=== PATIENT | male | born 1960 | race Two or more races ===

== ENCOUNTER 2021-08-05 00:01 | Inpatient (IN) | payer OTHER ==
[2021-08-05] VITALS (32 sets, daily range): BP systolic 122–166; BP diastolic 51–110
[~2021-08-05] VITALS: Ht 167.6 cm; Wt 87.1 kg
[2021-08-05] MEDS ORDERED: ONDANSETRON HCL/PF 4 MG/2 ML VIAL ONE (00:11)
[2021-08-05] MEDS ORDERED: PANTOPRAZOLE 40 MG VIAL ONE ×2 (00:11→08:08)
--- NOTE | 2021-08-05 00:15 | NUR ---
BIBRA FROM HOME C/O FOUND BY NEIGHBORS OUTSIDE APT SITTING ON CHAIR NOTED BLOOD, PT SAID RECTALLY BLEEDING FOR 16 HRS. PT A/O X 3, R R EVEN UNLABORED. NO SOB NOTED. PT TAKEN TO ER BED 08. PT CONNECTED TO CARDIAC AND POX MONITOR.
[2021-08-05] MEDS ORDERED: ONDANSETRON HCL/PF 4 MG/2 ML VIAL IVP ONE (00:30)
[2021-08-05] MEDS ORDERED: PANTOPRAZOLE 40 MG VIAL IV ONE (00:30)
[2021-08-05] MEDS ORDERED: IV NS 0.9% 1,000 ML BAG IV ONE ×2 (00:30)
--- NOTE | 2021-08-05 00:35 | NUR ---
COVID ANTIGEN SWAB COLLECTED AND SENT TO LAB
--- NOTE | 2021-08-05 00:35 | NUR ---
CYLINDER DEVALVER LAC #20G S/L PATENT AND INTACT. RETAIL GENERAL MANAGER AT PT'S BEDSIDE. URINE COLLECTED AND SENT TO LAB
--- NOTE | 2021-08-05 00:39 | NUR ---
SENIOR ARCHITECT AT PT'S BEDSIDE
--- NOTE | 2021-08-05 00:40 | NUR ---
MRSA SWAB COLLECTED AND SENT TO LAB. PATIENT'S BELONGINGS LIST DONE.
[2021-08-05 00:51] LABS: BASOPHILS # (AUTO) 0.1 K/uL (0.0-0.2); BASOPHILS % (AUTO) 0.4 % (0.0-2.0); EOSINOPHILS % (AUTO) 0.7 % (0.0-6.0); LYMPHOCYTES # (AUTO) 2.1 K/uL (0.8-4.8); LYMPHOCYTES % (AUTO) 14.5 % (20.0-44.0); MEAN CORPUSCULAR HGB CONC 29 g/dl (31.0-36.0); MEAN CORPUSCULAR VOLUME 97 fL (80-96); MONOCYTES # (AUTO) 1.1 K/uL (0.1-1.30); MONOCYTES % (AUTO) 7.3 % (2.0-12.0); NEUTROPHILS # (AUTO) 11.1 K/uL (1.8-8.9); NEUTROPHILS % (AUTO) 77.1 % (43.0-81.0); PLATELET COUNT (AUTO) 195 K/uL (150-450); WHITE BLOOD COUNT (AUTO) 14.4 K/uL (4.3-11.0)
[2021-08-05 00:52] LABS: RED BLOOD CELL COUNT(AUTO) 1.46 MIL/uL (4.5-6.0)
[2021-08-05 00:55] LABS: BILIRUBIN,URINE NEGATIVE (NEGATIVE); COLOR,URINE YELLOW (YELLOW); LEUKOCYTE ESTERASE ,URINE NEGATIVE (NEGATIVE); NITRITE, URINE NEGATIVE (NEGATIVE); PROTEIN,URINE NEGATIVE (NEGATIVE); UGLUCOSE NEGATIVE (NEGATIVE); UROBILINOGEN,URINE 0.2 EU/dL (0.2)
[2021-08-05 01:11] LABS: CALCIUM, SERUM 7.3 mg/dL (8.5-10.1); CREATININE 1.4 mg/dL (0.6-1.3); POTASSIUM 5.2 mmol/L (3.5-5.1)
[2021-08-05 01:15] LABS: THYROID STIMULATING HORMONE 1.323 uIU/mL (0.358-3.74)
[2021-08-05 01:16] LABS: HEMOGLOBIN 4.2 g/dL (13.5-17.5)
[2021-08-05 01:17] LABS: HEMATOCRIT 14 % (39-51)
[2021-08-05 01:28] LABS: BILIRUBIN,DIRECT 0.2 mg/dL (0.0-0.2); BILIRUBIN,TOTAL 0.6 mg/dL (0.2-1.0)
[2021-08-05 01:33] LABS: ALBUMIN 1.3 g/dL (3.4-5.0)
[2021-08-05 01:51] LABS: BAND % (MANUAL) 2 % (0.0-5.0); EOSINOPHILS % (MANUAL) 1 % (0-4); LYMPHOCYTES % (MANUAL) 15 % (16-48); MONOCYTES % (MANUAL) 7 % (0-11.0)
[2021-08-05 01:52] LABS: NEUTROPHILS % (MANUAL) 75 (42-76)
--- NOTE | 2021-08-05 01:52 | NUR ---
PT AGREED TO BLOOD TRANSFUSION. CONSENT FOR DONE.
[2021-08-05 01:54] LABS: ALCOHOL, BLOOD < 3 mg/dL (0-0)
[2021-08-05] MEDS ORDERED: MAGNESIUM HYDROXIDE 30 ML UDC PO PRN (02:00)
[2021-08-05] MEDS ORDERED: ZOLPIDEM TARTRATE 5 MG TABLET PO PRN (02:00)
[2021-08-05] MEDS ORDERED: Z GUARD REMEDY 4 OZ OINT TP PRN (02:00)
[2021-08-05] MEDS ORDERED: ONDANSETRON HCL/PF 4 MG/2 ML VIAL IVP PRN (02:00)
--- NOTE | 2021-08-05 02:00 | NUR ---
INITIATED RBC [id number] BLOOD TRANSFUSION @ R HAND #20G S/L VSS. WILL MONITOR FOR ADVERSE REACTIONS. NO S/SX AT THIS TIME.
--- NOTE | 2021-08-05 02:15 | NUR ---
CALLED RN RENAL TECHNICIAN REGARDING [facility] ADMISSION; NO AVAILABLE BEDS AT THIS TIME
--- NOTE | 2021-08-05 03:30 | NUR ---
BLOOD TRANSFUSION RBC UNIT COMPLETED. VSS. NO INTERACTION OR ADVERSE REACTION NOTED.
[2021-08-05] MEDS: IV D5/0.45 NACL 1,000 ML IV PRN ×3 (04:53→22:10)
[2021-08-05 06:10] LABS: BASOPHILS % (AUTO) 0.2 % (0.0-2.0); EOSINOPHILS % (AUTO) 0.5 % (0.0-6.0); LYMPHOCYTES % (AUTO) 11.5 % (20.0-44.0); MEAN CORPUSCULAR HGB CONC 30 g/dl (31.0-36.0); MEAN CORPUSCULAR VOLUME 97 fL (80-96); MONOCYTES # (AUTO) 1.1 K/uL (0.1-1.30); MONOCYTES % (AUTO) 6.2 % (2.0-12.0); NEUTROPHILS # (AUTO) 13.9 K/uL (1.8-8.9); NEUTROPHILS % (AUTO) 81.6 % (43.0-81.0); PLATELET COUNT (AUTO) 179 K/uL (150-450)
[2021-08-05 06:35] LABS: BILIRUBIN,TOTAL 1.3 mg/dL (0.2-1.0); CALCIUM, SERUM 7.1 mg/dL (8.5-10.1); CREATININE 1.3 mg/dL (0.6-1.3); POTASSIUM 5.8 mmol/L (3.5-5.1); TOTAL PROTEIN, SERUM 4.2 g/dL (6.4-8.2)
[2021-08-05 06:41] LABS: ALBUMIN 1.4 g/dL (3.4-5.0)
[2021-08-05 06:53] LABS: RED BLOOD CELL COUNT(AUTO) 1.82 MIL/uL (4.5-6.0)
[2021-08-05 06:55] LABS: HEMATOCRIT 18 % (39-51); HEMOGLOBIN 5.3 g/dL (13.5-17.5)
--- NOTE | 2021-08-05 07:58 | NUR ---
Janak stephenson in ED - 08/05/21 at 0800 by MIRIAM PT RETURNED TO ER BED [address]
--- NOTE | 2021-08-05 08:00 | NUR ---
pt here for gibleeding awake and alert
--- NOTE | 2021-08-05 08:18 | NUR ---
ADLS DONE. RECTAL BLEEDING NOTED. PT KEPT CLEAN AND DRY.
--- NOTE | 2021-08-05 08:27 | NUR ---
pt awake and alert fallow command BM black and red bood old stool no activ bleeding at this time lower extramity swallen peted edema pressure sore on lt and rt [place] with scare and 2 stable on lt thigh hx surgery on 06/23/21 pcp proveder here see and examine pt spook with pt
--- NOTE | 2021-08-05 08:46 | NUR ---
[facility] CALLED DIRECTOR OF OUTSIDE SALES PAGED.
--- NOTE | 2021-08-05 08:54 | NUR ---
CALLED AND SPOKE WITH DR. VALENCIA TO RELAY CRITICAL AM LAB. HGB IS NOW 5.3 FROM 4.2, ORDERED TO GIVE ANOTHE 2 UNTIS OF PACK RBC AND UPGRADE PT TO ICU. ORDERS NOTED AND CARRIED OUT.
[2021-08-05] MEDS ORDERED: PANTOPRAZOLE 40 MG VIAL IV SCH (09:00)
--- NOTE | 2021-08-05 09:57 | NUR ---
NO ACTIVE GI BLEEDING PT HAD ROOM 253 HAND OFF TO FAWAD OBREGON AND LAZARUSURSE 2 UNIE OF PRBC VS STABLE BP 115/66MMHG HR 101B/MIN
--- NOTE | 2021-08-05 10:15 | NUR ---
RN NOTES RECEIVED PT ON BED FROM ER, PT IS A/OX3, ON RA , NO SOB NOTED, ON TELE SR-ST, IV SITES CLEAN, DRY AND INTACT, IVF D51/2 NS AT 125 CC /HR RUNNING , SECOND UNIT OF PRBC IS NOT READY PER BLOOD BANK . SR UP X3, CALL LIGHT WITHIN EASY REACH, BED LOCKED AND IN LOWEST POSITION,CONTINUE TO MONITOR.
[2021-08-05] MEDS ORDERED: CEFTRIAXONE 1GM BAG (ER ONLY) 1 GM/50 ML PIGGYBACK IV ONE (11:30)
[2021-08-05] MEDS ORDERED: CEFTRIAXONE 1 G in IV D5W 50 ML IV ONE (12:00)
[2021-08-05] MEDS ORDERED: PANTOPRAZOLE 80 MG in IV NS 0.9% 500 ML IV PRN (12:00)
--- NOTE | 2021-08-05 12:25 | NUR ---
RN NOTES PT C/O R ARM IV SITE PAIN , PT IS HARD STICK , UNABLE TO START IV MEDS AT THIS TIME, BLOOD TRAFUSION STARTED VIA R HAND IV SITE, PT TO GI LAB AT THIS TIME,
[2021-08-05] MEDS ORDERED: DEXTROSE 50%-WATER 50 ML DISP.SYRIN IV PRN (12:30)
[2021-08-05] MEDS ORDERED: FENTANYL PF 100MCG/2ML AMPUL ONE (13:19)
[2021-08-05] MEDS ORDERED: MIDAZOLAM HCL 2 MG/2ML VIAL ONE (13:30)
[2021-08-05] MEDS ORDERED: EPINEPHRINE (1:10,000) SYRINGE 1 MG/10 ML DISP.SYRIN ONE (13:31)
--- NOTE | 2021-08-05 14:08 | NUR ---
RN NOTES PT RECEIVED FROM OR INTUBATED, ONE UNIT OF PRBC INFUSED , VSS STABLE, CONTINUE TO MONITOR .
[2021-08-05] MEDS: OCTREOTIDE 1,250 MCG in IV NS 0.9% 247.5 ML IV PRN (14:09)
--- NOTE | 2021-08-05 14:15 | NUR ---
RN NOTES PT EXTUBATED BY DR SALEH, O2 SAT WNL, CONTINUE TO MONITOR ,
[2021-08-05] MEDS: PANTOPRAZOLE 40 MG VIAL IV SCH (16:44)
[2021-08-05] MEDS: BLOOD SUGAR DIAGNOSTIC 1 EACH STRIP IN SCH (18:13)
[2021-08-05] MEDS: INSULIN REGULAR, HUMAN 100 UNIT/ML 3 ML VIAL SQ PRN (18:13)
--- NOTE | 2021-08-05 18:37 | NUR ---
RN NOTES PT IS AWAKE, AND ALERT, TWO UNITS OF PRBC'S INFUSED, VSS STABLE, ON 2L O2 N/C , O2 SAT WNL, R UPPER ARM MILDINE INSERTED BY MIDLINE NURSE, SANDOSTATIN RUNNING AT 50 MCG/ HR , NO ACTIVE BLEEDING NOTED, CABALLERO DRAINING TO GRAVITY, SR UP x3, CALL LIGHT WITHIN EASY REACH, BED LOCKED AND IN LOWEST POSITION, WILL ENDORSE TO PATCH SETTER NURSE FOR CONTINUITY OF CARE .
[2021-08-05 19:58] LABS: BASOPHILS # (AUTO) 0.1 K/uL (0.0-0.2); BASOPHILS % (AUTO) 0.5 % (0.0-2.0); HEMATOCRIT 24 % (39-51); HEMOGLOBIN 7.8 g/dL (13.5-17.5); LYMPHOCYTES # (AUTO) 2.4 K/uL (0.8-4.8); LYMPHOCYTES % (AUTO) 16.6 % (20.0-44.0); MEAN CORPUSCULAR HGB CONC 33 g/dl (31.0-36.0); MEAN CORPUSCULAR VOLUME 92 fL (80-96); MONOCYTES # (AUTO) 1.6 K/uL (0.1-1.30); MONOCYTES % (AUTO) 10.7 % (2.0-12.0); NEUTROPHILS # (AUTO) 10.4 K/uL (1.8-8.9); NEUTROPHILS % (AUTO) 71.2 % (43.0-81.0); PLATELET COUNT (AUTO) 163 K/uL (150-450); RED BLOOD CELL COUNT(AUTO) 2.61 MIL/uL (4.5-6.0); WHITE BLOOD COUNT (AUTO) 14.7 K/uL (4.3-11.0)
--- NOTE | 2021-08-05 21:50 | NUR ---
ICU/RN: SPOKE WITH DR. MARINELLI REGARDING PT ELEVATED SBP. NEW ORDERS RECIEVED AND CARRIED OUT.
[2021-08-05 22:00] LABS: EOSINOPHILS % (MANUAL) 1 % (0-4); LYMPHOCYTES % (MANUAL) 9 % (16-48); MONOCYTES % (MANUAL) 6 % (0-11.0); NEUTROPHILS % (MANUAL) 84 (42-76)
[2021-08-05] MEDS ORDERED: hydrALAZINE HCL IV 20 MG VIAL IV PRN (22:00)
[2021-08-06] VITALS (16 sets, daily range): BP systolic 121–155; BP diastolic 60–82
[2021-08-06] MEDS: BLOOD SUGAR DIAGNOSTIC 1 EACH STRIP IN SCH ×5 (00:43→22:38)
[2021-08-06] MEDS: INSULIN REGULAR, HUMAN 100 UNIT/ML 3 ML VIAL SQ PRN ×4 (00:46→22:39)
[2021-08-06 04:46] LABS: BASOPHILS # (AUTO) 0.1 K/uL (0.0-0.2); BASOPHILS % (AUTO) 0.5 % (0.0-2.0); EOSINOPHILS % (AUTO) 2.3 % (0.0-6.0); HEMATOCRIT 22 % (39-51); HEMOGLOBIN 7.3 g/dL (13.5-17.5); LYMPHOCYTES # (AUTO) 2.5 K/uL (0.8-4.8); LYMPHOCYTES % (AUTO) 17.8 % (20.0-44.0); MEAN CORPUSCULAR HGB CONC 33 g/dl (31.0-36.0); MEAN CORPUSCULAR VOLUME 90 fL (80-96); MONOCYTES # (AUTO) 1.4 K/uL (0.1-1.30); MONOCYTES % (AUTO) 9.9 % (2.0-12.0); NEUTROPHILS # (AUTO) 9.9 K/uL (1.8-8.9); NEUTROPHILS % (AUTO) 69.5 % (43.0-81.0); PLATELET COUNT (AUTO) 173 K/uL (150-450); RED BLOOD CELL COUNT(AUTO) 2.44 MIL/uL (4.5-6.0); WHITE BLOOD COUNT (AUTO) 14.3 K/uL (4.3-11.0)
[2021-08-06 05:00] LABS: CREATININE 1.3 mg/dL (0.6-1.3); MAGNESIUM 1.8 mg/dL (1.8-2.4); PHOSPHORUS 3.1 mg/dL (2.5-4.9); POTASSIUM 4.5 mmol/L (3.5-5.1)
[2021-08-06] MEDS: IV D5/0.45 NACL 1,000 ML IV PRN (06:26)
--- NOTE | 2021-08-06 07:44 | NUR ---
WOUND CARE CONSULT: PT PRESENTS WITH RT BUTTOCK LESION AND SCARRING/DISCOLORATION WITH EDEMA TO LOWER LEGS, PRESENT ON ADMISSION. PT ALSO NOTED TO HAVE GENERALIZED EDEMA, PRESENT ON ADMISSION. DR ANDERSON AND DR LEI CALLED FOR SURGICAL AND DPM CONSULTS. RECOMMENDATIONS MADE FOR SKIN PROTECTION. DISCUSSED WITH NURSING STAFF. MD IN AGREEMENT WITH PLAN OF CARE. Addendum: 08/06/21 at 0758 by TANYA PERAZA WNDNU RT THIGH MORELIA NOTED WITHOUT DRAINAGE, TENDERNESS OR ERYTHEMA.
[2021-08-06] MEDS: PANTOPRAZOLE 40 MG VIAL IV SCH ×2 (08:39→16:45)
[2021-08-06] MEDS ORDERED: DEXTROSE 50%-WATER 50 ML DISP.SYRIN IV PRN (09:00)
[2021-08-06] MEDS: CEFTRIAXONE 1 G in IV D5W 50 ML IV SCH (11:41)
--- NOTE | 2021-08-06 14:40 | NUR ---
PT TRANSFERRED TO [facility] ROOM 117-1 VIA BED USING ACLS PROTOCOL. ALL BELONGINGS BROUGHT WITH PATIENT. PT SETTLED IN NEW ROOM, TELEMETRY APPLIED. [facility] RN WAS IN ROOM AT THE TIME AUTOMOBILES SALESPERSON LEFT THE ROOM.
--- NOTE | 2021-08-06 14:41 | NUR ---
RN NOTE RECEIVED PATIENT IN BED RESTING ALERT ORIENTED X4 ON ROOM AIR O2:95% IV SITE IS ON RIGHT UPPER ARM MIDLINE AND LEFT FOREARM AND RIGHT HAND INTACT PATENT ON D51/2NS 70CC/H AND SANDOSTATIN 50MCG/10CC/HR.CABALLERO CATH IN PLACE URINE DRAINING YELLOW/CLEAR BY GRAVITY SAFETY MEASURE IMPLEMENT BED IN LOW POSITION AND LOCKED,HEAD OF THE BED ELEVATED,CALL LIGHT WITHIN REACH,CONTINUE TO MONITOR.
[2021-08-06] MEDS: OCTREOTIDE 1,250 MCG in IV NS 0.9% 247.5 ML IV PRN (16:32)
[2021-08-06] MEDS: ACETAMINOPHEN 325 MG TABLET PO PRN (18:31)
--- NOTE | 2021-08-06 18:56 | NUR ---
RN NOTE PATIENT REMAINS ALERT ORIENTED X4 VERBALLY RESPONSIVE NO SOB NOT ACUTE DISTRESS NOTED,ALL DUE MEDS GIVEN MD ORDERED KEPT CLEAN AND DRY ALL THE TIME ENDORSE NEXT COMING SHIFT FOR CONTINUATION OF CARE.
--- NOTE | 2021-08-06 19:25 | NUR ---
RN NOTE PT RECEIVED IN BED. PT IS ON 2L OF O2 VIA NC SHOWING NO S/SX OF RESP DISTRESS/SOB. PT IS A/OX3-4. ON TELE MONITOR SHOWING NSR. ON CLEAR LIQUID DIET. IV ACCESS NOTED ON RIGHT UPPER ARM ML, RIGHT HAND #20, AND LEFT FA #18. LINE FLUSHED, PATENT, AND INTACT WITH NO SIGNS OF INFILTRATION. D51/2 NS INFUSING AT 70 CC HOUR AAS WELL TAVIA AT 50 MCG. ALL SAFETY MEASURES IMPLEMENTED. WILL CONTINUE TO MONITOR AND ASSESS FOR ANY CHANGES DURING SHIFT.
[2021-08-07] VITALS (11 sets, daily range): BP systolic 110–133; BP diastolic 49–70
[2021-08-07] MEDS: IV D5/0.45 NACL 1,000 ML IV PRN ×2 (00:46→17:35)
--- NOTE | 2021-08-07 06:24 | NUR ---
RN NOTE NO CHANGES IN PT CONDITION DURING SHIFT. PT IS ON 2L OF O2 VIA NC SHOWING NO S/SX OF RESP DISTRESS/SOB. IV ACCESS NOTED ON RIGHT UPPER ARM ML, RIGHT HAND #20, AND LEFT FA #18. D51/2 NS INFUSING AT 70 CC HOUR AAS WELL SANDOSTATIN AT 50 MCG (10ML/HR). ALL SAFETY MEASURES IMPLEMENTED. ALL DUE MEDS GIVEN ORDERED. WILL ENDORSE TO MORNING SHIFT RN FOR ELI.
[2021-08-07 07:44] LABS: BASOPHILS % (AUTO) 0.4 % (0.0-2.0); EOSINOPHILS % (AUTO) 4.9 % (0.0-6.0); LYMPHOCYTES # (AUTO) 1.5 K/uL (0.8-4.8); LYMPHOCYTES % (AUTO) 19.8 % (20.0-44.0); MEAN CORPUSCULAR HGB CONC 33 g/dl (31.0-36.0); MEAN CORPUSCULAR VOLUME 93 fL (80-96); MONOCYTES # (AUTO) 0.7 K/uL (0.1-1.30); MONOCYTES % (AUTO) 9.3 % (2.0-12.0); NEUTROPHILS # (AUTO) 4.9 K/uL (1.8-8.9); NEUTROPHILS % (AUTO) 65.6 % (43.0-81.0); PLATELET COUNT (AUTO) 142 K/uL (150-450); RED BLOOD CELL COUNT(AUTO) 2.17 MIL/uL (4.5-6.0); WHITE BLOOD COUNT (AUTO) 7.4 K/uL (4.3-11.0)
[2021-08-07] MEDS: BLOOD SUGAR DIAGNOSTIC 1 EACH STRIP IN SCH ×4 (07:45→22:21)
--- NOTE | 2021-08-07 07:48 | NUR ---
RN OPENING NOTE PATIENT RECEIVED IN BED, AWAKE, A&OX4. PATIENT ON 2L O2 NC WITH NO SIGNS OF LABORED BREATHING AT THIS TIME. CABALLERO CATH IN PLACE, PATENT AND DRAINING CLEAR URINE. RIGHT UA MIDLINE AND LEFT FA 18G IN PLACE RUNNING D51/2NS AT 70CC/HR AND SANDOSTATIN AT 50M MCG/HR. PT DOES NOT REPORT ANY BLOODY BM OVERNIGHT. BED LOCKED AND IN LOWEST POSITION, CALL LIGHT WITHIN REACH, 2 SIDE RAILS UP.
[2021-08-07 07:53] LABS: CALCIUM, SERUM 7.1 mg/dL (8.5-10.1); CREATININE 1.1 mg/dL (0.6-1.3); POTASSIUM 3.9 mmol/L (3.5-5.1)
[2021-08-07 07:55] LABS: HEMATOCRIT 20 % (39-51); HEMOGLOBIN 6.7 g/dL (13.5-17.5)
--- NOTE | 2021-08-07 07:55 | NUR ---
RN NOTE CRITICAL LAB VALUE OF HEMOGLOBIN 6.[address] VALENCIA NOTIFIED, NO NEW ORDER AT THIS TIME.
--- NOTE | 2021-08-07 07:55 | NUR ---
RN NOTE PT STABLE ON RA, SAT 95%. PT DOES NOT SHOW OR REPORT ANY S/S OF DIFFICULTY BREATHING.
[2021-08-07] MEDS: PANTOPRAZOLE 40 MG VIAL IV SCH ×2 (08:04→17:03)
[2021-08-07] MEDS: VITAMINS A AND D 56.7 GM TUBE TP SCH (08:05)
[2021-08-07 08:54] LABS: BAND % (MANUAL) 1 % (0.0-5.0); EOSINOPHILS % (MANUAL) 5 % (0-4); LYMPHOCYTES % (MANUAL) 11 % (16-48); MONOCYTES % (MANUAL) 2 % (0-11.0); NEUTROPHILS % (MANUAL) 81 (42-76)
[2021-08-07] MEDS: CEFTRIAXONE 1 G in IV D5W 50 ML IV SCH (11:12)
[2021-08-07] MEDS: OCTREOTIDE 1,250 MCG in IV NS 0.9% 247.5 ML IV PRN (17:35)
--- NOTE | 2021-08-07 18:25 | NUR ---
followup blood bank ,blood still not ready.
[2021-08-07] MEDS: ACETAMINOPHEN 325 MG TABLET PO PRN (18:32)
--- NOTE | 2021-08-07 18:38 | NUR ---
RN NOTE BLOOD READY, WILL ENDORSE TO SOCIAL STAFF WORKER NURSE SYEDA.
--- NOTE | 2021-08-07 18:38 | NUR ---
RN CLOSING NOTE PATIENT REMAINS IN BED, AWAKE, A&OX4. PATIENT ON ROOM AIR WITH NO SIGNS OF LABORED BREATHING AT THIS TIME. CABALLERO CATH IN PLACE, PATENT AND DRAINING CLEAR URINE. LEFT UA MIDLINE IN PLACE RUNNING D51/2NS AT 70CC/HR AND SANDOSTATIN AT 50MCG/HR. RIGHT AC SL SHOWING REDNESS AND SIGNS OF INFILTRATION, REMOVED EARLIER THIS SHIFT. 1 BM THIS PM WITH NO SIGNS OF BLOOD IN STOOL. ALL NEEDS ATTENDED DURING SHIFT. BED LOCKED AND IN LOWEST POSITION, CALL LIGHT WITHIN REACH, 2 SIDE RAILS UP. WILL ENDORSE TO SURVEYOR NURSE FOR ELI.
[2021-08-07] MEDS: INSULIN REGULAR, HUMAN 100 UNIT/ML 3 ML VIAL SQ PRN (22:22)
[2021-08-08] VITALS: BP 133/69
[2021-08-08 04:00] VITALS: BP 146/71
--- NOTE | 2021-08-08 06:19 | NUR ---
RN CLOSING NOTE A/OX4. TOLERATING ROOM AIR. NO COMPLAINTS OF PAIN. SINUS RHYTHM ON THE MONITOR. CABALLERO CATHETER PRESENT, DRAINING TO GRAVITY. BM X1, BROWN AND FORMED. S/P 1 UNIT PRBC. IVF RUNNING D51/2NS AND SANDOSTATIN. BLOOD SUGAR MONITORED. BED IS LOW AND LOCKED, HOB ELEVATED IN SEMI FOWLERS, SIDE RAILS UP X2. CALL LIGHT WITHIN REACH.
[2021-08-08 06:43] LABS: BASOPHILS % (AUTO) 0.7 % (0.0-2.0); EOSINOPHILS % (AUTO) 6.9 % (0.0-6.0); HEMATOCRIT 24 % (39-51); HEMOGLOBIN 7.8 g/dL (13.5-17.5); LYMPHOCYTES % (AUTO) 19.4 % (20.0-44.0); MEAN CORPUSCULAR HGB CONC 33 g/dl (31.0-36.0); MEAN CORPUSCULAR VOLUME 93 fL (80-96); MONOCYTES # (AUTO) 0.5 K/uL (0.1-1.30); MONOCYTES % (AUTO) 9.8 % (2.0-12.0); NEUTROPHILS # (AUTO) 3.3 K/uL (1.8-8.9); NEUTROPHILS % (AUTO) 63.2 % (43.0-81.0); PLATELET COUNT (AUTO) 149 K/uL (150-450); RED BLOOD CELL COUNT(AUTO) 2.54 MIL/uL (4.5-6.0); WHITE BLOOD COUNT (AUTO) 5.3 K/uL (4.3-11.0)
[2021-08-08 07:04] LABS: CALCIUM, SERUM 7.1 mg/dL (8.5-10.1); POTASSIUM 3.8 mmol/L (3.5-5.1)
[2021-08-08] MEDS: BLOOD SUGAR DIAGNOSTIC 1 EACH STRIP IN SCH ×4 (07:43→21:44)
[2021-08-08 08:00] VITALS: BP 139/64
[2021-08-08] MEDS: VITAMINS A AND D 56.7 GM TUBE TP SCH (08:00)
[2021-08-08] MEDS: PANTOPRAZOLE 40 MG VIAL IV SCH ×2 (08:06→17:49)
--- NOTE | 2021-08-08 09:37 | NUR ---
COMMUNITY CULTURAL DEVELOPMENT OFFICER NOTE PATIENT RECEIVED IN BED, AWAKE, A&OX4. ON ROOM AIR WITH NO SIGNS OF LABORED BREATHING AT THIS TIME. CABALLERO CATH IN PLACE, PATENT AND DRAINING CLEAR URINE. RIGHT UA MIDLINE AND RIGHT FA 18G IN PLACE RUNNING D51/2NS AT 70CC/HR AND SANDOSTATIN AT 50M MCG/HR. PT DOES NOT REPORT ANY BLOODY BM OVERNIGHT. SAFETY MEASURES IN PLACE. BED LOCKED AND IN LOWEST POSITION, CALL LIGHT WITHIN REACH, 2 SIDE RAILS UP. WILL CONTINUE TO MONITOR.
[2021-08-08] MEDS: CEFTRIAXONE 1 G in IV D5W 50 ML IV SCH (11:49)
[2021-08-08] MEDS: INSULIN REGULAR, HUMAN 100 UNIT/ML 3 ML VIAL SQ PRN ×2 (11:51→21:49)
[2021-08-08 12:00] VITALS: BP 135/62
[2021-08-08] MEDS: IV D5/0.45 NACL 1,000 ML IV PRN (12:02)
--- NOTE | 2021-08-08 14:01 | NUR ---
RN NOTE UNABLE TO READ BARCODE UNSCANNED SANDOSTATIN 1250MCG IN 0.9% NS 250 ML GIVEN AT 2PM ON 08/08/2021.
[2021-08-08 16:00] VITALS: BP 141/63
[2021-08-08] MEDS: ACETAMINOPHEN 325 MG TABLET PO PRN (17:59)
--- NOTE | 2021-08-08 18:50 | NUR ---
RN CLOSING NOTE PATIENT REMAINS IN BED, AWAKE, A&OX4. PATIENT ON ROOM AIR WITH NO SIGNS OF LABORED BREATHING AT THIS TIME. CABALLERO CATH IN PLACE, PATENT AND DRAINING CLEAR URINE. LEFT UA MIDLINE IN PLACE RUNNING D51/2NS AT 70CC/HR AND SANDOSTATIN AT 50MCG/HR. ALL NEEDS ATTENDED DURING SHIFT. BED LOCKED AND IN LOWEST POSITION, CALL LIGHT WITHIN REACH, 2 SIDE RAILS UP. NEEDS ATTENDED. WILL ENDORSE TO NEXT NURSE ON DUTY FOR ELI.
--- NOTE | 2021-08-08 19:10 | NUR ---
RN NOTE RECEIVED PATIENT IN BED, AO X 4, IN NO ACUTE DISTRESS AT THIS TIME. RESPIRATION UNLABORED, SATURATION AT 98% ON ROOM AIR, SR ON THE MONITOR, HR IS 71. IV LINE AT R HAND 22G, AND DEMETRIS MIDLINE PATENT AND FLUSHING WELL, NO S/S OF INFECTION OR INFILTRATION WITH SANDOSTATIN INFUSING AT 50 MCG/HR, AND D5 1/2 NS AT 70 ML/HR. CABALLERO CATHETER DRAINING TO A CLEAR, YELLOW OUTPUT. CLEAR LIQUID DIET MAINTAINED PER ORDERS. NO SIGN OF BLEEDING NOTED. SAFETY MEASURES IMPLEMENTED. PATIENT BED ALARM IS ON. HEAD OF BED ELEVATED. BED IS LOCKED, IN LOWEST POSITION AND SIDE RAILS UP. CALL LIGHT WITHIN REACH OF THE PATIENT. WILL CONTINUE TO MONITOR AND REASSESS FOR ANY CHANGES.
[2021-08-08] MEDS: MAG HYDROX/AL HYDROX/SIMETH 30 ML UDC PO PRN (19:36)
[2021-08-08 20:00] VITALS: BP 125/58
[2021-08-09] VITALS: BP 138/64
[2021-08-09] MEDS: IV D5/0.45 NACL 1,000 ML IV PRN ×2 (03:05→17:12)
[2021-08-09 04:00] VITALS: BP 138/62
[2021-08-09] MEDS: MAG HYDROX/AL HYDROX/SIMETH 30 ML UDC PO PRN ×2 (06:51→17:23)
[2021-08-09 07:06] LABS: BASOPHILS % (AUTO) 0.6 % (0.0-2.0); EOSINOPHILS % (AUTO) 7.2 % (0.0-6.0); HEMATOCRIT 24 % (39-51); HEMOGLOBIN 7.9 g/dL (13.5-17.5); LYMPHOCYTES % (AUTO) 20.8 % (20.0-44.0); MEAN CORPUSCULAR HGB CONC 34 g/dl (31.0-36.0); MEAN CORPUSCULAR VOLUME 93 fL (80-96); MONOCYTES # (AUTO) 0.6 K/uL (0.1-1.30); MONOCYTES % (AUTO) 11.9 % (2.0-12.0); NEUTROPHILS % (AUTO) 59.5 % (43.0-81.0); PLATELET COUNT (AUTO) 170 K/uL (150-450); RED BLOOD CELL COUNT(AUTO) 2.55 MIL/uL (4.5-6.0)
[2021-08-09 07:24] LABS: ALBUMIN 1.7 g/dL (3.4-5.0); BILIRUBIN,TOTAL 1.8 mg/dL (0.2-1.0); POTASSIUM 3.8 mmol/L (3.5-5.1); TOTAL PROTEIN, SERUM 4.8 g/dL (6.4-8.2)
--- NOTE | 2021-08-09 07:57 | NUR ---
RN NOTE RECEIVED PATIENT AWAKE IN BED, AO X 4, IN NO ACUTE DISTRESS AT THIS TIME. RESPIRATION UNLABORED, SATURATION AT 98% ON ROOM AIR, SR ON THE MONITOR, HR IS 71. IV LINE ON R HAND 22G, AND DEMETRIS MIDLINE PATENT AND FLUSHING WELL, NO S/S OF INFECTION OR INFILTRATION WITH SANDOSTATIN INFUSING AT 50 MCG/HR, AND D5 1/2 NS AT 70 ML/HR. CABALLERO CATHETER DRAINING CLEAR, YELLOW OUTPUT. CLEAR LIQUID DIET MAINTAINED PER ORDERS. NO SIGN OF BLEEDING NOTED. SAFETY MEASURES IMPLEMENTED. PATIENT BED ALARM IS ON. HEAD OF BED ELEVATED. BED IS LOCKED, IN LOWEST POSITION AND SIDE RAILS UP. CALL LIGHT WITHIN REACH OF THE PATIENT. WILL CONTINUE TO MONITOR AND REASSESS FOR ANY CHANGES.
[2021-08-09 08:00] VITALS: BP 165/69
[2021-08-09] MEDS: BLOOD SUGAR DIAGNOSTIC 1 EACH STRIP IN SCH ×4 (08:15→22:28)
[2021-08-09] MEDS: PANTOPRAZOLE 40 MG VIAL IV SCH ×2 (08:23→16:09)
[2021-08-09] MEDS: VITAMINS A AND D 56.7 GM TUBE TP SCH (08:23)
--- NOTE | 2021-08-09 08:45 | NUR ---
JAY NOTE UNABLE TO READ BARCODE UNSACANNED SANDOSTATIN 1250MCG IN 0.9% NS 250 ML GIVEN AT 2PM ON 08/08/2021. Addendum: 08/09/21 at 0913 by JENIFER SELF RN CORRECTION DISREGARD THIS NOTE INTENDED FOR 08/08/2021
--- NOTE | 2021-08-09 09:02 | NUR ---
JAY NOTE UNABLE TO READ BARCODE UNSCANNED SANDOSTATIN 1250MCG IN 0.9% NS 250 ML GIVEN AT 2PM ON 08/08/2021. Addendum: 08/09/21 at 0913 by JENIFER SELF RN CORRECTION DISREGARD THIS NOTE INTENDED FOR 08/08/2021
--- NOTE | 2021-08-09 09:30 | NUR ---
RN NOTES DUE MEDS GIVEN
[2021-08-09] MEDS: CEFTRIAXONE 1 G in IV D5W 50 ML IV SCH (11:12)
[2021-08-09 12:00] VITALS: BP 125/64
--- NOTE | 2021-08-09 13:33 | NUR ---
RN NOTES REPORT GIVEN TO MARIEL BENITEZ.
[2021-08-09 16:00] VITALS: BP 132/63
[2021-08-09] MEDS: INSULIN REGULAR, HUMAN 100 UNIT/ML 3 ML VIAL SQ PRN ×2 (17:13→22:29)
--- NOTE | 2021-08-09 18:41 | NUR ---
RN CLOSING NOTE PATIENT REMAINS IN BED, AWAKE, A&OX4. PATIENT ON ROOM AIR WITH NO SIGNS OF LABORED BREATHING AT THIS TIME. CABALLERO CATH IN PLACE, PATENT AND DRAINING CLEAR URINE. LEFT UA MIDLINE IN PLACE RUNNING D51/2NS AT 70CC/HR. ALL NEEDS ATTENDED DURING SHIFT. BED LOCKED AND IN LOWEST POSITION, CALL LIGHT WITHIN REACH, 2 SIDE RAILS UP. NEEDS ATTENDED. WILL ENDORSE TO NEXT NURSE ON DUTY FOR ELI.
--- NOTE | 2021-08-09 19:15 | NUR ---
RN NOTE RECEIVED PATIENT IN BED, AO X 4, IN NO ACUTE DISTRESS AT THIS TIME. RESPIRATION UNLABORED, SATURATION AT 96% ON ROOM AIR, SR ON THE MONITOR, HR IS 77. IV LINE AT R HAND 22G, AND DEMETRIS MIDLINE PATENT AND FLUSHING WELL, NO S/S OF INFECTION OR INFILTRATION WITH D5 1/2 NS AT 70 ML/HR. CABALLERO CATHETER DRAINING TO A CLEAR, YELLOW OUTPUT. NO SIGN OF BLEEDING NOTED. SAFETY MEASURES IMPLEMENTED. PATIENT BED ALARM IS ON. HEAD OF BED ELEVATED. BED IS LOCKED, IN LOWEST POSITION AND SIDE RAILS UP. CALL LIGHT WITHIN REACH OF THE PATIENT. WILL CONTINUE TO MONITOR AND REASSESS FOR ANY CHANGES.
[2021-08-09 20:00] VITALS: BP 138/62
[2021-08-10] VITALS: BP 134/62
--- NOTE | 2021-08-10 00:01 | NUR ---
RN NOTE HAND OFF GIVEN TO BUZZ THOMPSON FOR CONTINUATION OF CARE
--- NOTE | 2021-08-10 00:05 | NUR ---
RN NOTES RECEIVED PT FOR CONTINUITY OF CARE. PATIENT A/O X 4. ON ROOM AIR, TOLERATING WELL, WITH 02 SAT OF 99%. IV ACCESS PATENT AND INTACT. WITH IV FLUID RUNNING ORDERED. ALL SAFETY MEASURES IN PLACE: PATIENT BED ALARM IS ON. HEAD OF BED ELEVATED. BED IS LOCKED, IN LOWEST POSITION AND SIDE RAILS UP. CALL LIGHT WITHIN REACH OF THE PATIENT. WILL CONTINUE TO MONITOR AND REASSESS FOR ANY CHANGES.
[2021-08-10 04:00] VITALS: BP 137/68
[2021-08-10 06:32] LABS: BASOPHILS % (AUTO) 0.8 % (0.0-2.0); EOSINOPHILS % (AUTO) 7.2 % (0.0-6.0); HEMATOCRIT 23 % (39-51); HEMOGLOBIN 7.6 g/dL (13.5-17.5); LYMPHOCYTES # (AUTO) 0.9 K/uL (0.8-4.8); LYMPHOCYTES % (AUTO) 18.1 % (20.0-44.0); MEAN CORPUSCULAR HGB CONC 34 g/dl (31.0-36.0); MEAN CORPUSCULAR VOLUME 92 fL (80-96); MONOCYTES # (AUTO) 0.6 K/uL (0.1-1.30); MONOCYTES % (AUTO) 12.7 % (2.0-12.0); NEUTROPHILS # (AUTO) 3.1 K/uL (1.8-8.9); NEUTROPHILS % (AUTO) 61.2 % (43.0-81.0); PLATELET COUNT (AUTO) 173 K/uL (150-450); RED BLOOD CELL COUNT(AUTO) 2.44 MIL/uL (4.5-6.0)
[2021-08-10 06:46] LABS: ALBUMIN 1.6 g/dL (3.4-5.0); BILIRUBIN,TOTAL 1.5 mg/dL (0.2-1.0); CALCIUM, SERUM 6.9 mg/dL (8.5-10.1); POTASSIUM 3.8 mmol/L (3.5-5.1); TOTAL PROTEIN, SERUM 4.7 g/dL (6.4-8.2)
--- NOTE | 2021-08-10 06:47 | NUR ---
LEAN SENSEI CLOSING NOTE PATIENT REMAINS STABLE IN BED, AWAKE, A/O X 4. ABLE TO MAKE NEEDS KNOWN. ON ROOM AIR WITH NO SIGNS OF LABORED BREATHING OR ACUTE DISTRESS NOTED. TELE MONITOR SHOWS SR, O2 SAT IS 97%. LEFT UA MIDLINE IN PLACE RUNNING D5 1/2 NS AT 70 CC/HR. CABALLERO CATH IN PLACE, PATENT AND INTACT, DRAINING CLEAR URINE BY GRAVITY. . ALL NEEDS ATTENDED DURING SHIFT. SAFETY MEASURES IMPLEMENTED: BED LOCKED AND IN LOWEST POSITION, CALL LIGHT WITHIN REACH, 2 SIDE RAILS UP. WILL ENDORSE TO AM SHIFT NURSE FOR ELI.
--- NOTE | 2021-08-10 07:30 | NUR ---
BARREL LOADER AND CLEANER OPENING NOTES RECEIVED PATIENT AWAKE IN BED. PATIENT IS A/O X 4. ON ROOM AIR, TOLERATING WELL, WITH 02 SAT OF 99%. IV ACCESS ON DEMETRIS MIDLINE PATENT AND INTACT. WITH IV FLUID D51/2 NS AT 70 CC/HR. ON TELE MONITOR READING SR. ALL SAFETY MEASURES IN PLACE: PATIENT BED ALARM IS ON. HEAD OF BED ELEVATED. BED IS LOCKED, IN LOWEST POSITION AND SIDE RAILS UP. CALL LIGHT AND TABLE WITHIN REACH OF THE PATIENT. WILL CONTINUE TO MONITOR THE PATIENT.
[2021-08-10] MEDS: BLOOD SUGAR DIAGNOSTIC 1 EACH STRIP IN SCH ×4 (07:36→22:37)
[2021-08-10 08:00] VITALS: BP 145/71
[2021-08-10] MEDS: PANTOPRAZOLE 40 MG VIAL IV SCH ×2 (08:14→17:13)
[2021-08-10] MEDS: CALCIUM CARB 600MG /VIT D 1 EACH TABLET PO SCH (08:14)
[2021-08-10] MEDS: VITAMINS A AND D 56.7 GM TUBE TP SCH (08:15)
[2021-08-10] MEDS: IV D5/0.45 NACL 1,000 ML IV PRN (09:50)
[2021-08-10] MEDS: INSULIN REGULAR, HUMAN 100 UNIT/ML 3 ML VIAL SQ PRN ×2 (11:23→17:26)
[2021-08-10 12:27] VITALS: BP 133/58
[2021-08-10] MEDS: SOD FERRIC GLUC 125 MG in IV NS 0.9% 100 ML IV SCH (14:56)
[2021-08-10] MEDS: MAG HYDROX/AL HYDROX/SIMETH 30 ML UDC PO PRN (15:03)
[2021-08-10 16:26] VITALS: BP 127/58
--- NOTE | 2021-08-10 19:30 | NUR ---
MS RN CLOSING NOTES PATIENT AWAKE IN BED. PATIENT IS A/O X 4. ON ROOM AIR, TOLERATING WELL, WITH 02 SAT OF 99%. IV ACCESS ON DEMETRIS MIDLINE PATENT AND INTACT. ALL DUE MEDS GIVEN ORDERED. CABALLERO CATHETER INTACT . URINE OUTPUT NOTED 700 ML. ALL SAFETY MEASURES IN PLACE: PATIENT BED ALARM IS ON. HEAD OF BED ELEVATED. BED IS LOCKED, IN LOWEST POSITION AND SIDE RAILS UP. CALL LIGHT AND TABLE WITHIN REACH OF THE PATIENT. WILL ENDORSE FOR ELI.
--- NOTE | 2021-08-10 19:50 | NUR ---
RN NOTE RECEIVED PATIENT IN BED, AWAKE, ALERT, AND VERBALLY RESPONSIVE. ABLE TO MAKE NEEDS KNOWN. BREATHING EVEN AND UNLABORED. ON ROOM AIR. NO S/S OF DISTRESS. DENIES CHEST PAIN. SKIN WARM AND DRY. RIGHT UPPER ARM MIDLINE INTACT. NO IVF INFUSING. INDWELLING CABALLERO CATHETER INTACT. DRAINING YELLOW URINE. DENIES PAIN AT THIS TIME. NEEDS ATTENDED. BED LOW, IN LOCKED POSITION. WILL CONTINUE TO MONITO.
[2021-08-10 20:00] VITALS: BP 143/70
[2021-08-11 04:00] VITALS: BP 140/74
[2021-08-11 07:25] LABS: BASOPHILS % (AUTO) 0.8 % (0.0-2.0); EOSINOPHILS % (AUTO) 6.6 % (0.0-6.0); HEMATOCRIT 25 % (39-51); HEMOGLOBIN 8.4 g/dL (13.5-17.5); LYMPHOCYTES # (AUTO) 0.9 K/uL (0.8-4.8); LYMPHOCYTES % (AUTO) 16.7 % (20.0-44.0); MEAN CORPUSCULAR HGB CONC 33 g/dl (31.0-36.0); MEAN CORPUSCULAR VOLUME 93 fL (80-96); MONOCYTES # (AUTO) 0.6 K/uL (0.1-1.30); MONOCYTES % (AUTO) 10.4 % (2.0-12.0); NEUTROPHILS # (AUTO) 3.5 K/uL (1.8-8.9); NEUTROPHILS % (AUTO) 65.5 % (43.0-81.0); PLATELET COUNT (AUTO) 202 K/uL (150-450); RED BLOOD CELL COUNT(AUTO) 2.73 MIL/uL (4.5-6.0); WHITE BLOOD COUNT (AUTO) 5.3 K/uL (4.3-11.0)
--- NOTE | 2021-08-11 07:28 | NUR ---
RN OPENING NOTES RECEIVED PATIENT AWAKE IN BED. A/O X 4. ON ROOM AIR, TOLERATING WELL, WITH 02 SAT OF 99%. IV ACCESS ON DEMETRIS MIDLINE PATENT, INTACT AND FLUSHING WELL. CABALLERO CATHETER DRAINING CLEAR YELLOW URINE. ALL SAFETY MEASURES IN PLACE: PATIENT BED ALARM IS ON. HEAD OF BED ELEVATED. BED IS LOCKED, IN LOWEST POSITION AND SIDE RAILS UP. CALL LIGHT AND TABLE WITHIN REACH. WILL CONTINUE TO MONITOR THE PATIENT.
[2021-08-11] MEDS: BLOOD SUGAR DIAGNOSTIC 1 EACH STRIP IN SCH ×2 (07:37→11:02)
[2021-08-11] MEDS: VITAMINS A AND D 56.7 GM TUBE TP SCH (08:00)
[2021-08-11] MEDS: CALCIUM CARB 600MG /VIT D 1 EACH TABLET PO SCH (08:00)
[2021-08-11] MEDS: PANTOPRAZOLE 40 MG VIAL IV SCH (08:00)
--- NOTE | 2021-08-11 08:15 | NUR ---
RN NOTE IV ON RT HAND DISCONTINUED REQUESTED BY PT. PT HAS DEMETRIS MIDLINE INPLACE, INTACT, PATENT AND FLUSHING WELL. PROCEDURE FOR IV DISCONTINUANCE EXPLAINED. PT VERBALIZED UNDERSTANDING. IV CATHETER INTACT. PRESSURE HELD TO SITE FOR 3 MINUTES AND BANDAID APPLIED. NO REDNESS, SWELLING OR BLEEDING AT IV SITE. PT TOLERATED PROCEDURE WELL.
[2021-08-11] MEDS: INSULIN REGULAR, HUMAN 100 UNIT/ML 3 ML VIAL SQ PRN (11:24)
[2021-08-11] MEDS ORDERED: Calcium Carb 600MG /Vit D PO (11:50)
[2021-08-11] MEDS ORDERED: PANT40TA2 PO (11:50)
[2021-08-11] MEDS ORDERED: MAG30ORA PO (11:50)
[2021-08-11] MEDS ORDERED: SIME80TA72 PO (11:50)
[2021-08-11] MEDS ORDERED: SUCR1TAB PO (11:50)
[2021-08-11 12:00] VITALS: BP 135/65
[2021-08-11] MEDS ORDERED: SIMETHICONE 80 MG TAB.CHEW PO ONE (12:00)
[2021-08-11] MEDS: SOD FERRIC GLUC 125 MG in IV NS 0.9% 100 ML IV SCH (14:15)
--- NOTE | 2021-08-11 17:30 | NUR ---
RN NOTE REVIEWED DISCHARGE INSTRUCTIONS WITH PT. PT VERBALIZED UNDERSTANDING. PT DISCHARGED WITH PRESCRIPTIONS, INSTRUCTIONS AND BELONGINGS. DEMETRIS MIDLINE AND F/C REMOVED. PT LEFT HOSPITAL TO HOME SELF CARE.
== END 2021-08-11 17:17 | disposition home or self-care (01) | DRG 241 ==
LOC: ER 00:03 → TRANSITION 02:39 → ICU 09:37 → TELE1 08-06 14:47 → TELE-TD 08-06 14:52 → TELE1 08-08 13:24 → MEDSG1 08-10 15:41
PROVIDERS: ADMIT Internal Medicine; ATTEND Nurse Practitioner Acute Care
PROC: 3E0G8GC Introduction of Other Therapeutic Substance into Upper GI, Via Natural or Artificial Opening Endoscopic (ICD-10-PCS; principal; 2021-08-05)
PROC: 0W3P8ZZ Control Bleeding in Gastrointestinal Tract, Via Natural or Artificial Opening Endoscopic (ICD-10-PCS; 2021-08-05)
PROC: 30233N1 Transfusion of Nonautologous Red Blood Cells into Peripheral Vein, Percutaneous Approach (ICD-10-PCS; 2021-08-05)
PROC: 05HB33Z Insertion of Infusion Device into Right Basilic Vein, Percutaneous Approach (ICD-10-PCS; 2021-08-05)
DX: K26.4 Chronic or unspecified duodenal ulcer with hemorrhage (principal); N17.0 Acute kidney failure with tubular necrosis; R57.1 Hypovolemic shock; E43 Unspecified severe protein-calorie malnutrition; D64.9 Anemia, unspecified; E87.5 Hyperkalemia; Z20.822 Contact with and (suspected) exposure to COVID-19; K74.60 Unspecified cirrhosis of liver; I85.10 Secondary esophageal varices without bleeding; D62 Acute posthemorrhagic anemia; E88.09 Other disorders of plasma-protein metabolism, not elsewhere classified; E87.2 Acidosis; V89.2XXS Person injured in unspecified motor-vehicle accident, traffic, sequela; I10 Essential (primary) hypertension; L85.3 Xerosis cutis; Z98.890 Other specified postprocedural states
CPT/HCPCS: 36410; 36415; 71045-TC; 80048-TC; 80053-TC; 80076-TC; 82140-TC; 82962-TC; 83690-TC; 83735-TC; 84100-TC; 84443-TC; 85025-TC; 85730-TC; 86850-TC; 87081-TC; 93970-TC; 94799-TC; 97112-TC; 97116-TC; 97530-TC; A6253; C9113; C9803; G0378; G0480; J0171; J0696; J1815; J2250; J2354; J2405; J2704; J2916; J3010; J3490; J7030; J7040; J7050; J7060; J7070; P9016